=== PATIENT | male | born 1990 | race Caucasian/White ===

== ENCOUNTER 2018-11-10 18:07 | Emergency (ER) | payer BC, SELFPAY ==
[2018-11-10 18:08] VITALS: BP 163/84; PULSE 97; RESP 16; TEMP 36.4; O2SAT 100; BMI 36.6
--- NOTE | 2018-11-10 18:48 | ED.VISSUMM ---
- ER Visit Summary Date of Service: 11/10/18 Chief Complaint: [] History of Present Illness: The patient is a 28 M [] Physical Examination: [] Test Results: [] Emergency Department Course and Treatment: [] Treatment Plan: [] Disposition: [] Impression: [] This note was generated with [employer] dictation software. It may contain incorrect words, spelling, and punctuation that were not noted in review of the chart prior to signing ED Disposition - Plan for ED Patient: Disposition: Home or Assisted Living Diagnosis: Strain of left trapezius muscle Instructions: ED Strain Muscle Ext, ED Sprain Strain Neck Prescriptions: Naproxen [Naprosyn] 500 mg PO BID PRN #20 tab Referrals: Adams Patterson DO [STAFF PHYSICIAN] - 5-7 Days
--- NOTE | 2018-11-10 18:55 | ED.DCSUM_ITS ---
- ER Visit Summary Date of Service: 11/10/18 Chief Complaint: [] History of Present Illness: The patient is a 28 M [] Physical Examination: [] Test Results: [] Emergency Department Course and Treatment: [] Treatment Plan: [] Disposition: [] Impression: [] This note was generated with [employer] dictation software. It may contain incorrect words, spelling, and punctuation that were not noted in review of the chart prior to signing ED Disposition - Plan for ED Patient: Disposition: Home or Assisted Living Diagnosis: Strain of left trapezius muscle Instructions: ED Strain Muscle Ext, ED Sprain Strain Neck Prescriptions: Naproxen [Naprosyn] 500 mg PO BID PRN #20 tab Referrals: Adams Patterson DO [STAFF PHYSICIAN] - 5-7 Days
--- NOTE | 2018-11-10 19:00 | ED.VISSUMM ---
- ER Visit Summary Date of Service: 11/10/18 Chief Complaint: Left shoulder pain History of Present Illness: The patient is a 28 M who presents with left shoulder pain that became worse today. Patient states he was cutting trees yesterday and developed pain in his left shoulder and trapezius muscle last night. Patient states the pain is worse with movement. Patient denies any specific trauma or injury. Patient describes the pain is sharp. Patient denies any paresthesias or weakness. Patient denies any other injuries. Physical Examination: Vital signs are stable. Patient is afebrile. Patient is in no acute distress. Musculoskeletal exam reveals tenderness over the left trapezius muscle and supraspinatus muscle. There is no bony crepitance or step-off noted. Range of motion was limited all motions of the left shoulder secondary to pain. There is no midline cervical spine tenderness. There is left cervical paraspinal tenderness. There is good range of motion of the cervical spine. Strength is 5/5 bilaterally. There are no sensory deficits noted. The remaining physical exam is within normal limits. Emergency Department Course and Treatment: Patient was given a prescription for Naprosyn. Patient was instructed to use ice to the area. Patient was instructed to follow-up with a primary care physician in 5-7 days. Patient understood and was agreeable with the plan. All questions were answered. Disposition: Discharge home Impression: Left trapezius strain This note was generated with [employer] dictation software. It may contain incorrect words, spelling, and punctuation that were not noted in review of the chart prior to signing ED Disposition - Plan for ED Patient: Disposition: Home or Assisted Living Diagnosis: Strain of left trapezius muscle Instructions: ED Sprain Strain Neck, ED Strain Muscle Ext Prescriptions: Naproxen [Naprosyn] 500 mg PO BID PRN #20 tab Referrals: Adams Patterson DO [STAFF PHYSICIAN] - 5-7 Days
--- NOTE | 2018-11-10 19:03 | ED.DCSUM_ITS ---
- ER Visit Summary Date of Service: 11/10/18 Chief Complaint: Left shoulder pain History of Present Illness: The patient is a 28 M who presents with left shoulder pain that became worse today. Patient states he was cutting trees yesterday and developed pain in his left shoulder and trapezius muscle last ni ght. Patient states the pain is worse with movement. Patient denies any specific trauma or injury. Patient describes the pain is sharp. Patient denies any paresthesias or weakness. Patient denies any other injuries. Physical Examination: Vital signs are stable. Patient is afebrile. Patient is in no acute distress. Musculoskeletal exam reveals tenderness over the left trapezius muscle and supraspinatus muscle. There is no bony crepitance or step- off noted. Range of motion was limited all motions of the left shoulder secondary to pain. There is no midline cervical spine tenderness. There is left cervical paraspinal tenderness. There is good range of motion of the cervical spine. Strength is 5/5 bilaterally. There are no sensory deficits noted. The remaining physical exam is within normal limits. Emergency Department Course and Treatment: Patient was given a prescription for Naprosyn. Patient was instructed to use ice to the area. Patient was instructed to follow-up with a primary care physician in 5-7 days. Patient understood and was agreeable with the plan. All questions were answered. Disposition: Discharge home Impression: Left trapezius strain This note was generated with [employer] dictation software. It may contain incorrect words, spelling, and punctuation that were not noted in review of the chart prior to signing ED Disposition - Plan for ED Patient: Disposition: Home or Assisted Living Diagnosis: Strain of left trapezius muscle Instructions: ED Sprain Strain Neck, ED Strain Muscle Ext Prescriptions: Naproxen [Naprosyn] 500 mg PO BID PRN #20 tab Referrals: Adams Patterson DO [STAFF PHYSICIAN] - 5-7 Days
--- NOTE | 2018-11-10 19:21 | ED.RN ---
patient requesting muscle relaxer. MD aware and not ordering at this time. explained to pt.
== END 2018-11-10 19:22 | disposition home or self-care (01) ==
LOC: ED 19:16
PROVIDERS: Emergency Provider Emergency Medicine
DX: S46.812A Strain of other muscles, fascia and tendons at shoulder and upper arm level, left arm, initial encounter (principal); X58.XXXA Exposure to other specified factors, initial encounter; Y93.89 Activity, other specified; Y92.9 Unspecified place or not applicable
CPT/HCPCS: 99282

== ENCOUNTER 2019-02-24 21:10 | Emergency (ER) | payer BC, SELFPAY ==
[2018-12-09 16:09] VITALS: BMI 36.1
[2019-02-24 21:11] VITALS: BP 145/91; PULSE 100; RESP 17; TEMP 36.8; O2SAT 97; BMI 33.2
--- NOTE | 2019-02-24 21:53 | ED.VISSUMM ---
- ER Visit Summary Date of Service: 02/24/19 Chief Complaint: Atraumatic right hand pain and swelling History of Present Illness: The patient is a 29 M [id number]. No significant past medical or surgical history. Patient states he just developed swelling on the dorsum of his right hand and wrist. Does not believe he injured it. Does not think he was stung by anything. This occurred after he came in from the outside after mowing his lawn. He denies any fall injury or any type of trauma. No fever. No prior history. He has never had any type of surgery to this arm. Physical Examination: Well-appearing young male. No acute distress. Vital signs are stable and afebrile. HEENT exam unremarkable. No swelling. Tongue and lips are normal. Neck nontender. Lungs clear to auscultation bilaterally. Heart regular rhythm no murmur. Abdomen soft nontender. Patient is moving all 4 extremities are neurovascular intact. The dorsum of his right hand has an area size of a quarter or half dollar that is raised and tender consistent with a local allergic reaction. It is not cellulitic. There is no bony deformity. He has full range of motion to his right elbow, wrist and hand. With normal flexion extension normal radial pulse. There is no lymphangitic streaking. No axillary lymphadenopathy. Test Results: None Emergency Department Course and Treatment: Pain and swelling is consistent with a local allergic reaction like he was bit or stung by an insect. Ice to the area. Motrin for pain and swelling. He already took Naprosyn 2 hours ago. He will be given a dose of Benadryl here. Treatment Plan: Ice and elevate. Anti-inflammatories. Follow-up if not improving return if worse. Disposition: Discharge Impression: Right hand dorsum pain and swelling secondary to a local allergic reaction This note was generated with [employer] software. It may contain incorrect words, spelling, and punctuation that were not noted in review of the chart prior to signing ED Disposition - Plan for ED Patient: Referrals: Volodymyr White MD [Primary Care Provider] -
--- NOTE | 2019-02-24 21:55 | ED.DEP ---
ED Disposition - Plan for ED Patient: Disposition: Home or Assisted Living Instructions: ED Bite Sting Insect Local Allergic React Referrals: Volodymyr White MD [Primary Care Provider] - 3-5 Days if not improving Additional Instructions: Ice and elevate. Motrin for pain and swelling. Benadryl for allergic reaction. This looks like a local allergic reaction from most likely an insect bite or sting.
[2019-02-24] MEDS: DiphenhydrAMINE 25 MG Capsule PO (22:07)
== END 2019-02-24 22:08 | disposition home or self-care (01) ==
PROVIDERS: Emergency Provider Emergency Medicine; Family Provider Internal Medicine; PCP Internal Medicine
DX: M79.641 Pain in right hand (principal); M79.89 Other specified soft tissue disorders; T78.40XA Allergy, unspecified, initial encounter; X58.XXXA Exposure to other specified factors, initial encounter
CPT/HCPCS: 99283

== ENCOUNTER → 2019-12-16 14:49 | Outpatient (CLI) | payer BC, SELFPAY ==
[2019-10-11 20:01] VITALS: BMI 32.2
== END ==
PROVIDERS: PCP Internal Medicine; Referring Provider Nurse Practitioner Family; Visit Provider Nurse Practitioner Family
DX: J02.9 Acute pharyngitis, unspecified (principal)
CPT/HCPCS: 87070; 87880

== ENCOUNTER 2020-01-28 17:54 | Emergency (ER) | payer BC, SELFPAY ==
[2019-12-16 15:37] VITALS: BMI 32.2
[2020-01-28 17:54] VITALS: BP 136/97; PULSE 92; RESP 16; TEMP 36.2; O2SAT 100; BMI 32.4
--- NOTE | 2020-01-28 18:18 | CT_ITS ---
HISTORY: LOW ABD PAIN X 3 DAYS TECHNIQUE: Helically acquired images were obtained of the abdomen and pelvis following the intravenous administration of ml of Gastrografin Tamp; 100mL Isovue-370 Iodinated contrast. 2D reformats. Oral contrast was administered. A radiation dose optimization technique was used for this scan. COMPARISON: None FINDINGS: # of images incl. paperwork: 433 LUNG BASES: Clear. CT abdomen: Bones are unremarkable. The gallbladder remains. Liver, spleen, pancreas, and adrenal glands, are normal. The kidneys are normal. The aorta is normal. CT pelvis: No ascites is present. The prostate gland is not enlarged. The appendix is normal. Series 2 image 74. The bladder is mostly decompressed. Bowel-gas pattern is normal. CT/Abdomen/Pelvis WITH Contrast IMPRESSION: No acute intra-abdominal or pelvic disease. Individualized dose optimization techniques were used for this CT. at 2022 Reported and signed by: Lonny Gray MD Electronically Signed: Lonny Gray MD at 20:21 EDT Tel , Service support ,
--- NOTE | 2020-01-28 18:35 | ED.DCSUM_ITS ---
- ER Visit Summary Date of Service: 01/28/20 Chief Complaint: Abdominal pain History of Present Illness: The patient is a 29 M who presents with abdominal pain that is been waxing and waning over the past 4 days. Patient states the pain comes on and lasts proxy 1 to 2 seconds. Patient describes the pain as a dull aching over the lower abdomen. Patient states he gets sharp at times. Patient states that sometimes a bump in the car will make it worse. Patient denies any nausea or vomiting. Patient denies any diarrhea. Patient admits to some dysuria but denies any hematuria or frequency. Physical Examination: Vital signs are stable. Patient is afebrile. Patient is in no acute distress. Oral mucosa is pink and moist. Neck is supple. Trachea is midline. There is no JVD. Heart was regular rate and rhythm. Lungs are clear and equal bilaterally. Abdomen is soft. Bowel sounds are normal. There is minimal lower abdominal tenderness. There is no rebound or guarding noted. There are no hernias noted. Cranial nerves II through XII are intact. There are no focal motor or sensory deficits noted. Test Results: Urinalysis was ordered. There is no evidence of urinary tract infection. CBC, comprehensive metabolic profile, lipase were ordered and were all within normal limits. CT scan of the abdomen and pelvis with oral and IV contrast was ordered. There is no acute intra-abdominal process. This was interpreted by the radiologist and reviewed by myself. Emergency Department Course and Treatment: Patient does not want to have an IV and does not want to stay for further testing. Patient states he is very anxious about having an IV and requested an anxiolytic. Patient was given a dose of oral Ativan. Patient was feeling better on reevaluation. Patient was advised of his findings. Patient was instructed to follow-up with his primary care physician in 5 to 7 days. Patient was instructed to take fiber supplements as needed for constipation. Patient understood and was agreeable with the plan. All questions were answered. Disposition: Discharge home Impression: Lower abdominal pain This note was generated with [employer] dictation software. It may contain incorrect words, spelling, and punctuation that were not noted in review of the chart prior to signing ED Disposition - Plan for ED Patient: Disposition: Home or Assisted Living Diagnosis: Lower abdominal pain of unknown etiology Instructions: ED Unknown Causes of Abdominal Pain Male Referrals: Volodymyr White MD [STAFF PHYSICIAN] - 3-5 Days
[2020-01-28] MEDS: LORazepam 0.5 MG Tablet PO (18:58)
[2020-01-28] MEDS: 0.9% Normal Saline 1,000 ML 1000 ML IV (19:17)
[2020-01-28 19:24] LABS: Bacteria 0 SEEN /hpf (None Seen); Red Blood Cells-Urine 0 SEEN /hpf (0-5)
[2020-01-28 19:26] LABS: Color, Urine Yellow (Yellow); Glucose, Dipstick Normal (Normal); Ketone-Dipstick 5 mg/dl (Negative); Leukocyte Esterase-Dipstick Negative /ul (Negative); Nitrite-Dipstick Negative (Negative); Occult Blood-Urine Negative /ul (Negative); Protein-Dipstick Negative (Negative); Specific Gravity, Urine 1.025 (1.002-1.030); Urine Bilirubin Dipstick Negative (Negative); Urine Clarity Clear (Clear); Urine Urobilinogen Normal (Normal)
[2020-01-28 19:35] LABS: Absolute Lymphocyte Count 1.23 X10^3/uL (0.83-4.51); Absolute Neutrophil Count 3.2 X10^3/uL (2.0-7.7); Basophil# 0.04 X10^3/uL; Basophil% 0.8 % (0-1); Eosinophil# 0.22 X10^3/uL; Eosinophils% 4.1 % (0-5); Hematocrit 45.4 % (40-54); Hemoglobin 15.7 g/dL (13.0-16.5); Lymphocyte # 1.23 X10^3/ul (4.0); Lymphocyte % 23.1 % (19-41); Mean Corp Hgb Conc 34.6 g/dL (32-36); Mean Corpuscular Hgb 29.1 pg (27.0-32.0); Mean Corpuscular Volume 84.2 fL (80-94); Monocyte# 0.62 X10^3/uL; Monocyte% 11.6 % (0-10); NRBC Flagged by Analyzer 0 % (0-5); Platelet Count 198 K/mm3 (150-450); RBC Distribution Width CV 12.6 % (11.6-14.6); RBC Distribution Width SD 37.7 fl (35.1-43.9); Red Blood Count 5.39 M/mm3 (4.6-6.2); White Blood Count 5.3 K/mm3 (4.4-11.0)
[2020-01-28 19:42] LABS: ALB/GLOB Ratio 1.4 RATIO (0.9-2.4); AST(SGOT) 23 U/L (15-37); Alanine Aminotransfer ALT/SGPT 34 U/L (16-61); Albumin, Serum 4.6 g/dL (3.2-5.0); Alkaline Phosphatase 74 U/L (45-117); Anion Gap 6 (5-15); BUN 12 mg/dL (7-18); BUN/Creat Ratio 10.9 RATIO (10-20); Calcium,Total 9.2 mg/dL (8.5-10.1); Chloride 105 mmol/L (98-107); EST Glomerular Filtration Rate 84 mL/min (>60); Est Glom Filt Rate - Afr Amer 101 mL/min (>60); Estimated Creatinine Clearance 92.64 ml/min; Globulin 3.2 g/dL (2.2-4.2); Glucose 93 mg/dL (74-106); Lipase 63 U/L (73-393); Mucous, Urine 1+ /hpf (<or=2+); Potassium 3.4 mmol/L (3.5-5.1); Protein, Total 7.8 g/dL (6.4-8.2); Sodium Level 139 mmol/L (136-145)
[2020-01-28 19:43] LABS: Squamous Epithelial Cells - UA 0-5 SEEN /hpf (0-5); Transitional Epithelial - Ur 0 SEEN /hpf (0-5); White Blood Cells 0-5 SEEN /hpf (0-5)
[2020-01-28 20:29] VITALS: BP 156/90; PULSE 75; RESP 16; O2SAT 100
[2020-01-28 20:42] VITALS: BP 147/79; RESP 18
== END 2020-01-28 20:45 | disposition home or self-care (01) ==
PROVIDERS: Emergency Provider Emergency Medicine; PCP Nurse Practitioner Family
DX: R10.30 Lower abdominal pain, unspecified (principal)
CPT/HCPCS: 74177; 80053; 81001; 83690; 85025; 96360; 99284; J7030; Q9967

== ENCOUNTER → 2020-02-08 | Outpatient (CLI) | payer BC, SELFPAY ==
[2020-02-06 10:15] VITALS: BMI 32.4
[2020-02-08 13:30] LABS: Bacteria 0 SEEN /hpf (None Seen); Mucous, Urine 0 SEEN /hpf (<or=2+); Squamous Epithelial Cells - UA 0 SEEN /hpf (0-5)
[2020-02-08 13:54] LABS: Color, Urine Yellow (Yellow); Glucose, Dipstick Normal (Normal); Ketone-Dipstick Negative (Negative); Leukocyte Esterase-Dipstick Negative /ul (Negative); Nitrite-Dipstick Negative (Negative); Occult Blood-Urine Negative /ul (Negative); Protein-Dipstick Negative (Negative); Urine Bilirubin Dipstick Negative (Negative); Urine Clarity Clear (Clear); Urine Urobilinogen Normal (Normal)
[2020-02-08 14:04] LABS: Red Blood Cells-Urine 0-5 SEEN /hpf (0-5); White Blood Cells 0-5 SEEN /hpf (0-5)
== END | disposition home or self-care (01) ==
LOC: LABSPEC 11:14
PROVIDERS: PCP Nurse Practitioner Family; Referring Provider Nurse Practitioner Family; Visit Provider Nurse Practitioner Family
DX: R10.9 Unspecified abdominal pain (principal)
CPT/HCPCS: 81001; 87086

== ENCOUNTER 2020-06-27 03:25 | Emergency (ER) | payer BC, SELFPAY ==
[2020-05-12 13:11] VITALS: BMI 32.4
--- NOTE | 2020-06-27 03:30 | RAD_ITS ---
STUDY: X-RAY - LEFT WRIST REASON FOR EXAM: Male, 30 years old. NKI -- C/O LT ANTERIOR WRIST PAIN X 3 DAYS TECHNIQUE: 3 view(s) of the wrist were obtained. COMPARISON: None. FINDINGS: Normal visualized distal radius and ulna. Normal radiocarpal articulation. Normal distal radioulnar articulation. Normal carpal bones. Normal carpal articulations. Normal carpometacarpal articulation of the thumb. Normal second through fifth carpometacarpal articulations. Normal visualized metacarpal bones. The soft tissue structures are unremarkable. RAD/Wrist min 3 Views IMPRESSION: Normal x-ray examination of the wrist. Electronically Signed: Jeremy Lucia MD at 4:00 EDT , Service support ,
--- NOTE | 2020-06-27 04:50 | ED.DEP ---
ED Disposition - Plan for ED Patient: Disposition: Home or Assisted Living Diagnosis: Carpal tunnel syndrome of left wrist Instructions: ED Carpal Tunnel Prescriptions: Naproxen [Naprosyn] 500 mg PO BID #20 tab Prescription Printed Referrals: Fan Kerr DO [STAFF PHYSICIAN] - 1 Week if not improving
== END 2020-06-27 05:10 | disposition home or self-care (01) ==
PROVIDERS: Emergency Provider Emergency Medicine; PCP Nurse Practitioner Family
DX: G56.02 Carpal tunnel syndrome, left upper limb (principal)
CPT/HCPCS: 73110; 99283